=== PATIENT | female | born 1960 | race Caucasian/White ===

== ENCOUNTER → 2016-09-29 | Outpatient (CLI) | payer OTHER, MEDICAID ==
[~2016-09-29] MED LIST: LEXISCAN IV ONE
== END ==
LOC: RAD 08:18
PROVIDERS: ATTEND Internal Medicine Cardiovascular Disease
DX: R07.89 Other chest pain (principal); R06.09 Other forms of dyspnea
CPT/HCPCS: 78452; 93017; A4222; A9502; J2785

== ENCOUNTER → 2016-10-01 | Outpatient (CLI) | payer OTHER, MEDICAID | LOC: RAD 13:27 | PROVIDERS: ATTEND Internal Medicine Cardiovascular Disease | DX: R07.89 Other chest pain (principal); R06.09 Other forms of dyspnea | CPT/HCPCS: 93306 ==

== ENCOUNTER → 2017-01-05 | Outpatient (CLI) | payer OTHER, MEDICAID ==
--- NOTE | 2017-01-05 15:17 | MRI ---
HISTORY: Shoulder pain. Noncontrast MRI exam of the left shoulder. Technique: Multiplanar and multisequence MR examination of the left shoulder is performed at 1.5 Tal[place] la without the use of IV contrast. Findings: ? Rotator cuff: The subscapularis is intact. No medial displacement of the biceps tendon is seen. Th ere is tendinosis of the posterior supraspinatus, distally, at the footplate. Also seen is tendinosi s of the anterior infraspinatus at the footplate without full-thickness rotator cuff tear seen. No f ocal rotator cuff tear or rotator cuff atrophy is seen. The teres minor is intact. Increased T2 sign al change and linear fluid is seen in the subacromial \T\ subdeltoid bursa, compatible with mild sub acromial \T\ subdeltoid bursitis. ? Intra-articular biceps: No injury, tear, or displacement observed. ? Glenoid labrum: Superior labral fraying without displaced labral tear. ? Acromioclavicular joint: There is no evidence for AC joint separation or associated AC joint injur y, however. Mild to moderate AC joint osteoarthritis is seen. ? Glenohumeral joint: No joint effusion, focal joint erosion, or loose body seen. ? Bone marrow: No altered T2 signal seen to suggest an acute fracture, bone marrow contusion, or agg ressive bone marrow lesion. No Hill-Sachs deformity or bony Bankart lesion is seen, either. No other bone marrow signal abnormality is observed. ? Other: No concerning or infiltrative soft tissues masses are seen. IMPRESSION: 1. Moderate tendinosis of the conjoined tendon, distally, at the footprint. 2. No full-thickness rotator cuff tear or rotator cuff atrophy is seen. 3. 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 4. Mild subacromial \T\ subdeltoid bursitis and inflammation. Reported By:
== END ==
LOC: RAD 08:48
PROVIDERS: ATTEND Pain Medicine Interventional Pain Medicine
DX: M25.512 Pain in left shoulder (principal)
CPT/HCPCS: 73221

== ENCOUNTER → 2017-02-05 | Outpatient (CLI) | payer OTHER, MEDICAID ==
[2017-02-05 08:31] LABS: BASOPHILS # (AUTO) 0.1 X10^3/uL (0.0-0.1); BASOPHILS % (AUTO) 0.9 % (0.2-1.0); EOSINOPHILS # (AUTO) 0.1 x10^3/uL (0.0-0.2); HEMOGLOBIN 12.6 g/dL (12.0-16.0); LYMPHOCYTES # (AUTO) 1.8 X10^3/uL (1.3-2.9); LYMPHOCYTES % (AUTO) 30.5 % (21.0-51.0); MEAN CORPUSCULAR HEMOGLOBIN 30.3 pg (27.0-34.0); MEAN CORPUSCULAR HGB CONC 34.1 g/dL (33.0-35.0); MEAN CORPUSCULAR VOLUME 88.8 fL (80.0-100.0); MONOCYTES # (AUTO) 0.5 x10^3/uL (0.3-0.8); MONOCYTES % (AUTO) 7.7 % (0.0-13.0); NEUTROPHILS # (AUTO) 3.5 x10^3/uL (2.2-4.8); NEUTROPHILS % (AUTO) 59.9 % (42.0-75.0); PLATELET COUNT 163 X10^3/uL (150.0-450.0); RED BLOOD COUNT 4.17 X10^6/uL (3.5-5.4); RED CELL DISTRIBUTION WIDTH 13.7 % (11.6-16.5); WHITE BLOOD COUNT 5.9 X10^3/uL (3.6-10.0)
[2017-02-05 08:40] LABS: ALANINE AMINOTRANSFERASE 32 Units/L (12-78); ALBUMIN 3.5 g/dL (3.4-5.0); ALKALINE PHOSPHATASE 81 Units/L (46-116); ASPARTATE AMINO TRANSFERASE 34 Units/L (15-37); BLOOD UREA NITROGEN 12 mg/dL (7-18); CARBON DIOXIDE 25.4 mmol/L (21-32); CHLORIDE 106 mmol/L (98-107); CHOL/HDL RATIO 2.2 (0.0-5.0); CHOLESTEROL 83 mg/dL (0-200); CREATININE 1.21 mg/dL (0.55-1.02); HDL CHOLESTEROL 37 mg/dL (40-60); SODIUM 140 mmol/L (136-145); TOTAL PROTEIN 6.5 g/dL (6.4-8.2); TRIGLYCERIDES 142 mg/dL (0-150); eGFR BLACK RACES 59 (>60); eGFR NON BLACK RACES 49 (>60)
[2017-02-05 09:04] LABS: ERYTHROCYTE SEDIMENTATION RATE 14 MM/HOUR (0-20)
== END ==
LOC: LAB 08:01
PROVIDERS: ATTEND Nurse Practitioner Family
DX: I10 Essential (primary) hypertension (principal); E78.4 Other hyperlipidemia; M15.0 Primary generalized (osteo)arthritis
CPT/HCPCS: 36415; 80053; 80061; 85025; 85652; 86140

== ENCOUNTER → 2017-02-12 | Outpatient (CLI) | payer OTHER, MEDICAID ==
--- NOTE | 2017-02-12 14:02 | MRI ---
MRI cervical spine without contrast Indication: Cervical spondylosis. Neck pain. Comparison: 07/07/2016 Technique: Multiplanar multisequence MR images of the cervical spine were obtained without contrast. Findings: The lower brain and craniocervical junction are unremarkable. The cervical cord demonstrate s normal signal and morphology. The marrow signal and alignment of the cervical spine is normal. The visualized pre and paravertebral soft tissues demonstrate no significant abnormality. C2-3: Minimal left-sided facet arthropathy without significant foraminal or canal narrowing. C3-4: Mild broad-based disk bulge effaces the anterior thecal sac, without compressing the cord or markedly narrowing the canal diameter. No significant neuroforaminal narrowing. Minimal left-sided facet arthropathy. C4-5, C5-6, C6-7, C7-T1: Unremarkable. Images through the lung apices demonstrate a 6 mm opacity of the right lung apex ; this is similar to the previous CT neck from 07/18/2013 and is suggestive for pleural parenchymal scarring. Impression: Small broad-based disc bulge at C3-4 effacing the thecal sac, without significantly compressing the c ord, unchanged. Reported By:
== END | disposition home or self-care (01) | DRG 552 ==
LOC: RAD 09:57
PROVIDERS: ATTEND Nurse Practitioner Family
DX: M47.22 Other spondylosis with radiculopathy, cervical region (principal); M50.21 Other cervical disc displacement, high cervical region
CPT/HCPCS: 72141

== ENCOUNTER → 2017-04-07 | Outpatient (CLI) | payer OTHER, MEDICAID ==
--- NOTE | 2017-04-07 15:07 | MRI ---
MRI left shoulder without contrast Indication: Chronic left shoulder pain Comparison: 01/05/2017 Technique: Multiplanar multi sequence MR images of the left shoulder were obtained without contrast. Findings: No evidence for acute fracture or dislocation. There are mild degenerative changes AC joint. Trace fl uid is present within the subacromial/subdeltoid bursa. There is mild distal conjoined tendinosis. No evidence for large cuff tear or tendon retraction. The glenohumeral articular surfaces are grossly m aintained. No overt labral tear. The intra-articular biceps tendon is intact. No joint effusion. No s ignificant muscle atrophy about the shoulder. Impression: Mild conjoined tendinosis, subacromial/subdeltoid bursitis. Mild AC joint degenerative disease. Reported By:
--- NOTE | 2017-04-08 14:10 | MRI ---
MRI SPINE CERVICAL WITHOUT CONTRAST CLINICAL HISTORY: 56-year-old female with chronic neck pain. COMPARISON: MR cervical spine 02/12/2017. Technique: Multiplanar, multisequence MRI images of the cervical spine were obtained without the adm inistration of intravenous contrast. FINDINGS: Straightening of the cervical lordosis as imaged. Alignment is maintained. The craniocervic al junction is normal. Congenital canal stenosis. Vertebral body and disc space height are maintained . Vertebral marrow and intervertebral disc space signal are normal. Cord signal is normal. The visu alized posterior fossa structures are normal. C2-C3: No central canal or neural foraminal stenosis. C3-C4: Broad-based central disc osteophyte complex that narrows canal to 7.8 mm without cord impingem ent, with mild flattening of the ventral cord without cord signal change and no foraminal stenosis. C4-C5: Central disc osteophyte narrows canal to 7.4 mm with mild flattening of the central and right central ventral cord without cord signal change or impingement. No neural foraminal stenosis. C5-C6: Shallow, broad-based disc osteophyte without central canal or neural foraminal stenosis, cord impingement or contour deformity. No neural foraminal stenosis. C6-C7: No central canal or neural foraminal stenosis. C7-T1: No central canal or neural foraminal stenosis. Paraspinous soft tissues are unremarkable. IMPRESSION: 1. Mild multilevel disc degeneration and spondyloarthropathy ventral contour deformity of the cord fr om C3-C5 as described without cord signal change. 2. See level by level descriptions above.. Reported By:
== END ==
LOC: RAD 08:24
PROVIDERS: ATTEND Nurse Practitioner Family
DX: M47.22 Other spondylosis with radiculopathy, cervical region (principal); M19.012 Primary osteoarthritis, left shoulder
CPT/HCPCS: 72141; 73221

== ENCOUNTER → 2017-05-04 | Outpatient (CLI) | payer OTHER, MEDICAID ==
[2017-05-04 08:28] LABS: BASOPHILS # (AUTO) 0.1 X10^3/uL (0.0-0.1); BASOPHILS % (AUTO) 0.7 % (0.2-1.0); EOSINOPHILS # (AUTO) 0.1 x10^3/uL (0.0-0.2); EOSINOPHILS % (AUTO) 0.5 % (0.9-2.9); HEMATOCRIT 42.9 % (36.0-47.0); HEMOGLOBIN 14.8 g/dL (12.0-16.0); LYMPHOCYTES # (AUTO) 3.8 X10^3/uL (1.3-2.9); LYMPHOCYTES % (AUTO) 34.5 % (21.0-51.0); MEAN CORPUSCULAR HEMOGLOBIN 30.5 pg (27.0-34.0); MEAN CORPUSCULAR HGB CONC 34.4 g/dL (33.0-35.0); MEAN CORPUSCULAR VOLUME 88.6 fL (80.0-100.0); MONOCYTES # (AUTO) 1.2 x10^3/uL (0.3-0.8); MONOCYTES % (AUTO) 10.7 % (0.0-13.0); NEUTROPHILS # (AUTO) 5.8 x10^3/uL (2.2-4.8); NEUTROPHILS % (AUTO) 53.6 % (42.0-75.0); PLATELET COUNT 337 X10^3/uL (150.0-450.0); RED BLOOD COUNT 4.84 X10^6/uL (3.5-5.4); RED CELL DISTRIBUTION WIDTH 14.8 % (11.6-16.5); WHITE BLOOD COUNT 10.9 X10^3/uL (3.6-10.0)
[2017-05-04 08:41] LABS: ALANINE AMINOTRANSFERASE 19 Units/L (12-78); ALBUMIN 3.8 g/dL (3.4-5.0); ALKALINE PHOSPHATASE 98 Units/L (46-116); ASPARTATE AMINO TRANSFERASE 17 Units/L (15-37); BLOOD UREA NITROGEN 8 mg/dL (7-18); C-REACTIVE PROTEIN < 0.50 mg/L (0-3.0); CALCIUM 9.4 mg/dL (8.5-10.1); CARBON DIOXIDE 25.1 mmol/L (21-32); CHLORIDE 105 mmol/L (98-107); CREATININE 1.12 mg/dL (0.55-1.02); SODIUM 142 mmol/L (136-145); TOTAL PROTEIN 7.4 g/dL (6.4-8.2); eGFR BLACK RACES > 60 (>60); eGFR NON BLACK RACES 54 (>60)
[2017-05-04 09:08] LABS: ERYTHROCYTE SEDIMENTATION RATE 8 MM/HOUR (0-20)
== END ==
LOC: LAB 07:54
PROVIDERS: ATTEND Nurse Practitioner Family
DX: I10 Essential (primary) hypertension (principal); M67.912 Unspecified disorder of synovium and tendon, left shoulder
CPT/HCPCS: 36415; 80053; 85025; 85652; 86140

== ENCOUNTER → 2017-05-05 | Outpatient (CLI) | payer OTHER, MEDICAID ==
--- NOTE | 2017-05-08 14:51 | MG ---
HISTORY: SCREENING Comparison: Multiple priors dating back to July 07, 2013 FINDINGS: Bilateral CC of the right and left breast were obtained. MLO right and mL left breast imaging was per formed due to left shoulder injury and inability to tolerate left MLO views. Scattered fibroglandular tissue is seen to be present without significant interval change. No suspicious architectural disto rtion, mass or clustered microcalcifications can be observed to suggest malignancy. No skin thickeni ng or nipple retraction is appreciated. No pathological lymphadenopathy can be identified, but the left axilla is not imaged. Benign-appearing calcifications are noted within the right and left breast . IMPRESSION: NO RADIOGRAPHIC EVIDENCE OF MALIGNANCY. ACR CATEGORY 2 - benign findings. FOLLOW-UP EXAM 1 YEAR. Additionally, correlation with physical exam of the left axilla is recommended given limited imaging as above. Diagnostic CAD was utilized and reviewed. * 0 (ZERO) - ASSESSMENT INCOMPLETE; ADDITIONAL IMAGING IS NEEDED. * / (ONE) - NEGATIVE. * 2/II (TWO) - BENIGN FINDINGS. * 3/III (THREE) - PROBABLY BENIGN FINDING; SHORT INTERVAL FOLLOW-UP SUGGESTED. * 4/IV (FOUR) - SUSPICIOUS ABNORMALITY; BIOPSY SHOULD BE CONSIDERED. * 5/V - HIGHLY SUSPICIOUS OF MALIGNANCY; BIOPSY SHOULD BE PERFORMED. A NEGATIVE X-RAY REPORT SHOULD NOT DELAY BIOPSY IF A DOMINANT OR CLINICALLY SUSPICIOUS MASS IS PRESENT; 4 TO 8 PERCENT OF CANCERS ARE NOT IDENTIFIED BY X-RAY. A NEGA TIVE REPORT MAY REINFORCE THE CLINICAL IMPRESSION. ADENOSIS AND DENSE BREASTS MAY OBSCURE AN UNDERLY ING NEOPLASM. Reported By:
== END ==
LOC: RAD 10:35
PROVIDERS: ATTEND Nurse Practitioner Family
DX: Z12.31 Encounter for screening mammogram for malignant neoplasm of breast (principal)
CPT/HCPCS: 77067

== ENCOUNTER → 2017-06-08 | Outpatient (CLI) | payer OTHER, MEDICAID ==
--- NOTE | 2017-06-08 10:20 | CT ---
HISTORY: Branchial plexus lesions, disorder at C5-C6, attention to where cervical rib meets 1st verte bra Study: CT cervical spine without contrast Comparison: MRI 04/13/2017 Technique: Multiple axial images of the cervical spine were obtained from the skull base to the thora cic inlet without administration of IV contrast. Sagittal and coronal reformats were performed and r eviewed. Dose reduction techniques including Automated Exposure Control (AEC) and adjustment of mA an d kV were utilized. Findings: Normal cervical alignment. Vertebral body heights are preserved. The disc spaces appear normal. The p osterior elements are intact. No evidence of acute fracture or dislocation. No cervical ribs are see n. No spinal or foraminal stenosis identified. The visualized prevertebral and paraspinal soft tissues appear normal. The visualized lung apices are clear. No supraclavicular mass is seen. IMPRESSION: 1. Negative CT of the cervical spine. Reported By:
--- NOTE | 2017-06-09 10:40 | MRI ---
HISTORY: Lesion of left ulnar nerve. NON-CONTRAST MRI EXAM OF THE LEFT ELBOW JOINT Technique: Multi-sequence and multiplanar T2, T1, and PD MRI images of the left elbow joint performed at 1.5 richie without the benefit of IV contrast on this elbow joint exam. Findings: The examination demonstrates an intact biceps and brachialis tendon without evidence for ab normal signal. The triceps tendon is also intact without evidence for injury or abnormal signal. Ther e is no evidence for olecranon bursitis. The UCL complex is intact as well. No UCL disruption is seen . There is no evidence for a full-thickness lateral myotendinous complex tear or retraction observed. The lateral/radial collateral ligament complex is intact without tear or additional abnormality. The medial myotendinous complex that originates from the humeral epicondyle is within normal limits with out evidence for inflammation or tear. No other abnormal intramuscular signal is seen about the elbow joint. There is normal bone marrow signal seen also without evidence for an acute fracture, subluxat ion, or dislocation. There is no loose body or significant joint effusion seen. There is no focal ost eochondral defect seen. No aggressive bone marrow lesion or soft tissue mass is appreciated. No other musculoskeletal abnormalities are seen. No susceptibility artifact / (metallic) foreign body is seen . No aggressive soft tissue mass within or about the elbow joint is seen. However, there is increased signal seen in the ulnar nerve near the cubital tunnel without evidence for a lesion in the cubital tunnel. However, this with any clinical context to evaluate for neural entrapment syndrome/ulnar neur itis in this setting. No distinct ulnar nerve lesion or peripheral nerve sheath tumor is suggested on this exam, however. No other aggressive musculoskeletal or soft tissue/bony lesion is seen, either. No injury seen. IMPRESSION: Increased T2 signal seen in the ulnar nerve near the cubital tunnel without evidence for a solid lesion in the cubital tunnel. However, this finding needs clinical context to evaluate for ne ural entrapment syndrome/ulnar neuritis in this setting. No distinct ulnar nerve lesion or peripheral nerve sheath tumor is suggested on this exam, however. No other aggressive musculoskeletal or soft t issue/bony lesion is seen, either. No elbow injuries seen. Reported By:
== END ==
LOC: RAD 08:23
PROVIDERS: ATTEND Neurological Surgery
DX: R29.898 Other symptoms and signs involving the musculoskeletal system (principal); G56.22 Lesion of ulnar nerve, left upper limb; Q76.5 Cervical rib; M50.122 Cervical disc disorder at C5-C6 level with radiculopathy; M50.123 Cervical disc disorder at C6-C7 level with radiculopathy
CPT/HCPCS: 72125; 73221

== ENCOUNTER 2017-06-22 14:19 | Emergency (ER) | payer OTHER, MEDICAID ==
[2017-06-22 14:28] VITALS: BMI 20.5
[2017-06-22] MEDS ORDERED: NS 1000 ML 1,000 ML IV ONE (14:51)
--- NOTE | 2017-06-22 14:53 | DR.GENAD ---
HPI - PCP Primary Care Physician: CAROLYN HOLLY - HPI Comment HPI Comment: SEVERAL BM WITH N/V/D SINCE YESTERDAY, GETTINH WORSE. NOT HOLDING DOWN FLUID OR FOOD. - Complaint/Symptoms Chief Complaint Doctors Comments: N/V/D TIMES ONE DAY. WEAK, DIZZY. Chief Complaint:: PT STATED SHE FELT BAD YESTERDAY WITH DIARRHEA AND VOMITING. SHE STATED SHE IS WEAK,AND THINK I HAVE THE FLU - Nurses notes reviewed Nurses Notes Review: Yes - Source History Provided: Patient - Mode of Arrival Mode of Arrival: Ambulatory - Timing Onset of Chief Complaint: 06/21/17 Came on: Suddenly - Duration Duration: Constant Duration: Days - Severity Severity: Moderate PMH - PMH Past Medical History: Yes Past Medical History: Depression, Dyslipidemia, Hypertension Past Surgical History: Yes Surgical History: REGISTERED PRIVATE DUTY NURSE Surgery, Hysterectomy, Ortho Surgery - Family History History of Family Medical Conditions: No - Social History Does patient currently use any type of tobacco product: Yes Have you used tobacco products in the last 12 months: Yes Type of Tobacco Use: Cigarettes How many years tobacco product used: 4 Does any household member use tobacco: No Alcohol Use: None Do you use any recreational Drugs:: No Lives With: Family Lives Where: Home - infectious screening In the last 2 months have you had wt loss of >10#?: NO Have you had fever, night sweats or hemotysis?: No Have you traveled outside the country in the last 6 months?: No Isolation: Standard ROS - Review of Systems Constitutional: Weakness, Fatigue. negative: Chills, Fever Eyes: negative: See HPI, Discharge ENTM: negative: Ear Pain, Nose Discharge, Nose Congestion, Throat Pain Respiratoy: Non-Productive Cough Cardiovascular: No Symptoms Reported Gastrointestinal/Abdominal: Abdominal Pain, Nausea, Vomiting Genitourinary: negative: Dysuria, Frequency, Hematuria Neurological: Headache, Weakness, Dizziness Musculoskeletal: Back Pain, Muscle Pain Integumentary: Dryness Hematologic/Lymphatic: No Symptoms Reported Endocrine: No Symptoms Reported All Other Systems: Reviewed and Negative PE - Vital Signs Vitals: Temperature 98.4 F Pulse Rate [Left Brachial] 92 Pulse Rate 101 Respiratory Rate 20 Blood Pressure [Left Arm] 120/82 Blood Pressure 133/93 O2 Sat by Pulse Oximetry 98 - General Limitations: No Limitations General Appearance: Alert - Head Head Exam: Normal Inspection - Eyes Eye exam: Normal Appearance - ENT ENT Exam: Normal External Ear Exam External Ear Exam: Normal External Inspection TM/Canal Exam: Bilateral Normal Nose Exam: Normal Nose Exam Mouth Exam: Normal Inspection Throat Exam: Normal Inspection. negative: Tonsillar Erythema, Tonsillomegaly, Tonsillar Exudate - Neck Neck Exam: Trachea Midline - Chest Chest Inspection: Symmetric Chest Wall Rise - Respiratory Respiratory Exam: Normal Lung Sounds Bilat Respiratory Exam: Bilateral Rhonchi, Lower Rhonchi - Cardiovascular Cardiovascular Exam: Regular Rate, Normal Rhythm, Tachycardia - Abdominal Exam Abdominal Exam: Normal Bowel Sounds, Soft, Tenderness Abdominal Tenderness: Diffuse, Moderate - Extremities Extremities Exam: Normal Inspection, Tenderness - Back Back Exam: Normal Inspection - Neurologic Neurological Exam: Oriented X3 - Psychiatric Psychiatric Exam: Anxious - Skin Skin Exam: Dry MDM - Differential Diagnosis Differential Diagnosis: ACUTE GASTROENTERITIS, FLU. BOWEL ONSTRUCTION Course - Treatment Treatment: SEE ORDERS. IV NAUSEA MED AND IV NS PLUS POTASSIUM IN ED. - Reevaluation 1st: Improved - Education/Counseling Education/Counseling: Patient, Education Educated On: Diagnosis, Needs for Follow Up ROR - Labs Reviewed Laboratory Results Reviewed?: Yes Result Diagrams: 06/22/17 15:00 06/22/17 15:00 Laboratory: WBC 10.6 X10^3/uL (3.6-10.0) H 06/22/17 15:00 RBC 4.99 X10^6/uL (3.5-5.4) 06/22/17 15:00 Hgb 15.3 g/dL (12.0-16.0) 06/22/17 15:00 Hct 44.3 % (36.0-47.0) 06/22/17 15:00 MCV 88.9 fL (80.0-100.0) 06/22/17 15:00 MCH 30.7 pg (27.0-34.0) 06/22/17 15:00 MCHC 34.6 g/dL (33.0-35.0) 06/22/17 15:00 RDW 14.9 % (11.6-16.5) 06/22/17 15:00 Plt Count 235 X10^3/uL (150.0-450.0) 06/22/17 15:00 MPV 7.6 fL (7.4-11.0) 06/22/17 15:00 Neut % 68.2 % (42.0-75.0) 06/22/17 15:00 Lymph % 20.7 % (21.0-51.0) L 06/22/17 15:00 [place] % 10.3 % (0.0-13.0) 06/22/17 15:00 Eos % 0.3 % (0.9-2.9) L 06/22/17 15:00 Baso % 0.5 % (0.2-1.0) 06/22/17 15:00 Neut # 7.2 x10^3/uL (2.2-4.8) H 06/22/17 15:00 Lymph # 2.2 X10^3/uL (1.3-2.9) 06/22/17 15:00 [place] # 1.1 x10^3/uL (0.3-0.8) H 06/22/17 15:00 Eos # 0.0 x10^3/uL (0.0-0.2) 06/22/17 15:00 Baso # 0.1 X10^3/uL (0.0-0.1) 06/22/17 15:00 Absolute Nucleated RBC 0.0 /100WBC 06/22/17 15:00 Sodium 129 mmol/L (136-145) L 06/22/17 15:00 Corrected Sodium TNP 06/22/17 15:00 Potassium 3.0 mmol/L (3.5-5.1) L* 06/22/17 15:00 Chloride 97 mmol/L (98-107) L 06/22/17 15:00 Carbon Dioxide 21.2 mmol/L (21-32) 06/22/17 15:00 BUN 19 mg/dL (7-18) H 06/22/17 15:00 Creatinine 1.37 mg/dL (0.55-1.02) H 06/22/17 15:00 Est GFR (MDRD) Af Amer 51 (>60) L 06/22/17 15:00 Est GFR (MDRD) Non-Af 43 (>60) L 06/22/17 15:00 Glucose 103 mg/dL (65-99) H 06/22/17 15:00 Calcium 9.3 mg/dL (8.5-10.1) 06/22/17 15:00 Corrected Calcium TNP 02/05/18 15:00 Total Bilirubin 0.40 mg/dL (0.2-1.0) 06/22/17 15:00 AST 47 Units/L (15-37) H 06/22/17 15:00 ALT 28 Units/L (12-78) 06/22/17 15:00 Alkaline Phosphatase 107 Units/L (46-116) 06/22/17 15:00 Total Protein 7.4 g/dL (6.4-8.2) 06/22/17 15:00 Albumin 3.5 g/dL (3.4-5.0) 06/22/17 15:00 Globulin 3.9 g/dL (2.5-4.5) 06/22/17 15:00 Albumin/Globulin Ratio 0.9 Ratio (1.1-2.1) L 06/22/17 15:00 Influenza Type A (PCR) Negative (NEGATIVE) 06/22/17 14:50 Influenza Type B (PCR) Negative (NEGATIVE) 06/22/17 14:50 S. pyogenes (TEM-PCR) Not detected (NOT DETECT) 06/22/17 14:55 - XRAY XRAY Interpreted by: Radiologist XRAY Findings: REPORT DISCUSS WITH PATIENT. - Diagnosis Discharge Problem: Gastroenteritis, Dehydration, Hypokalemia - Discharge Plan Disposition: 01 HOME, SELF-CARE Condition: Stable Prescriptions: Diphenoxylate/Atropine [Lomotil] 1 tab PO TID PRN #15 tab PRN Reason: Ondansetron [Zofran ODT 8 mg] 8 mg PO Q8H PRN #12 tab PRN Reason: Nausea/Vomiting - Follow ups/Referrals Follow ups/Referrals: DAKSHA HOLLY [Primary Care Provider] - 3 days - Instructions Instructions: Viral Gastroenteritis, Adult, [id number], Hypokalemia, Dehydration, Adult, [id number] Additional Instructions: RETURN TO ED IF WORSE.
[2017-06-22] MEDS ORDERED: NS 1000 ML 1,000 ML ONE (15:07)
[2017-06-22 15:12] LABS: BASOPHILS # (AUTO) 0.1 X10^3/uL (0.0-0.1); BASOPHILS % (AUTO) 0.5 % (0.2-1.0); EOSINOPHILS % (AUTO) 0.3 % (0.9-2.9); HEMATOCRIT 44.3 % (36.0-47.0); HEMOGLOBIN 15.3 g/dL (12.0-16.0); LYMPHOCYTES # (AUTO) 2.2 X10^3/uL (1.3-2.9); LYMPHOCYTES % (AUTO) 20.7 % (21.0-51.0); MEAN CORPUSCULAR HEMOGLOBIN 30.7 pg (27.0-34.0); MEAN CORPUSCULAR HGB CONC 34.6 g/dL (33.0-35.0); MEAN CORPUSCULAR VOLUME 88.9 fL (80.0-100.0); MEAN PLATELET VOLUME 7.6 fL (7.4-11.0); MONOCYTES # (AUTO) 1.1 x10^3/uL (0.3-0.8); MONOCYTES % (AUTO) 10.3 % (0.0-13.0); NEUTROPHILS # (AUTO) 7.2 x10^3/uL (2.2-4.8); NEUTROPHILS % (AUTO) 68.2 % (42.0-75.0); PLATELET COUNT 235 X10^3/uL (150.0-450.0); RED BLOOD COUNT 4.99 X10^6/uL (3.5-5.4); RED CELL DISTRIBUTION WIDTH 14.9 % (11.6-16.5); WHITE BLOOD COUNT 10.6 X10^3/uL (3.6-10.0)
[2017-06-22 15:29] LABS: ALANINE AMINOTRANSFERASE 28 Units/L (12-78); ALBUMIN 3.5 g/dL (3.4-5.0); ALKALINE PHOSPHATASE 107 Units/L (46-116); ASPARTATE AMINO TRANSFERASE 47 Units/L (15-37); BLOOD UREA NITROGEN 19 mg/dL (7-18); CALCIUM 9.3 mg/dL (8.5-10.1); CARBON DIOXIDE 21.2 mmol/L (21-32); CHLORIDE 97 mmol/L (98-107); CREATININE 1.37 mg/dL (0.55-1.02); SODIUM 129 mmol/L (136-145); TOTAL PROTEIN 7.4 g/dL (6.4-8.2); eGFR BLACK RACES 51 (>60); eGFR NON BLACK RACES 43 (>60)
[2017-06-22] MEDS ORDERED: ZOFRAN INJ 4 MG VIAL IVP ONE (15:45)
[2017-06-22] MEDS ORDERED: NS + KCL 20 MEQ/L 1,000 ML IV ONE (15:47)
[2017-06-22] MEDS ORDERED: ZOFRAN INJ 4 MG VIAL ONE (15:47)
[2017-06-22] MEDS ORDERED: NS + KCL 20 MEQ/L 500 ML IV SCH (16:00)
--- NOTE | 2017-06-22 16:22 | RAD ---
HISTORY: Abdominal pain. Study: Acute abdominal series Comparison: None. Findings: The trachea is midline. The cardiac silhouette is unremarkable. The lungs are clear without focal i nfiltrate or effusion. The bony thorax is unremarkable. Flat plate and upright evaluation of the abdomen demonstrates a nonspecific/nonobstructive bowel gas pattern with air and stool to the level of the rectum. No obvious free air. No pathological soft tis yovana mass or calcification can be observed. The bony structures are grossly intact. IMPRESSION: 1. No acute cardiopulmonary disease. 2. No evidence for acute abdominal pathology identified. Reported By:
[2017-06-22] MEDS ORDERED: LOMOTIL PO ONE (18:17)
[2017-06-22] MEDS ORDERED: LOMOTIL ONE (18:29)
[2017-06-22 19:57] VITALS: BP 120/82
== END 2017-06-22 19:56 | disposition home or self-care (01) ==
LOC: ER 14:29
DX: K52.89 Other specified noninfective gastroenteritis and colitis (principal); E86.0 Dehydration; E87.6 Hypokalemia
CPT/HCPCS: 36415; 74022; 80053; 85025; 87070; 87502; 87651; 87880; 96365; 96367; 96374; 96375; 99283; A4222; J2405

== ENCOUNTER → 2017-06-26 | Outpatient (CLI) | payer OTHER, MEDICAID ==
[~2017-06-26] MED LIST changes: -LEXISCAN IV ONE; +NS 250 ML IV 250 ML IV ONE; +POTASSIUM CHL 60 MEQ/NS 0.45% 500 ML 60 MEQ/500 ML BAG IV NR; +POTASSIUM CHLORIDE INJ 40 MEQ VIAL IV ONE
[2017-06-26 10:24] LABS: ALANINE AMINOTRANSFERASE 33 Units/L (12-78); ALBUMIN 3.5 g/dL (3.4-5.0); ALKALINE PHOSPHATASE 127 Units/L (46-116); ASPARTATE AMINO TRANSFERASE 21 Units/L (15-37); BLOOD UREA NITROGEN 7 mg/dL (7-18); CALCIUM 8.9 mg/dL (8.5-10.1); CARBON DIOXIDE 30.2 mmol/L (21-32); CHLORIDE 104 mmol/L (98-107); CREATININE 1.04 mg/dL (0.55-1.02); SODIUM 143 mmol/L (136-145); TOTAL PROTEIN 6.9 g/dL (6.4-8.2); eGFR BLACK RACES > 60 (>60); eGFR NON BLACK RACES 58 (>60)
[2017-06-26 10:33] LABS: BASOPHILS # (AUTO) 0.1 X10^3/uL (0.0-0.1); BASOPHILS % (AUTO) 0.5 % (0.2-1.0); EOSINOPHILS # (AUTO) 0.1 x10^3/uL (0.0-0.2); EOSINOPHILS % (AUTO) 0.4 % (0.9-2.9); HEMOGLOBIN 13.7 g/dL (12.0-16.0); LYMPHOCYTES # (AUTO) 2.5 X10^3/uL (1.3-2.9); LYMPHOCYTES % (AUTO) 18.3 % (21.0-51.0); MEAN CORPUSCULAR HEMOGLOBIN 30.5 pg (27.0-34.0); MEAN CORPUSCULAR HGB CONC 34.3 g/dL (33.0-35.0); MEAN PLATELET VOLUME 8.5 fL (7.4-11.0); MONOCYTES # (AUTO) 0.9 x10^3/uL (0.3-0.8); MONOCYTES % (AUTO) 6.6 % (0.0-13.0); NEUTROPHILS # (AUTO) 10.1 x10^3/uL (2.2-4.8); NEUTROPHILS % (AUTO) 74.2 % (42.0-75.0); PLATELET COUNT 244 X10^3/uL (150.0-450.0); RED BLOOD COUNT 4.49 X10^6/uL (3.5-5.4); RED CELL DISTRIBUTION WIDTH 14.5 % (11.6-16.5); WHITE BLOOD COUNT 13.7 X10^3/uL (3.6-10.0)
[2017-06-26 15:17] VITALS: BMI 19.7
[2017-06-27 02:27] VITALS: BP 120/81
== END ==
LOC: LAB 09:48
PROVIDERS: ATTEND Nurse Practitioner Family
DX: K52.89 Other specified noninfective gastroenteritis and colitis (principal); E87.6 Hypokalemia
CPT/HCPCS: 36415; 80053; 84132; 85025; 96365; 96374; A4222

== ENCOUNTER → 2017-07-14 | Outpatient (CLI) | payer OTHER, MEDICAID ==
[2017-06-27 02:27] VITALS: BP 120/81
[2017-07-14 08:38] LABS: CHOL/HDL RATIO 2.6 (0.0-5.0)
== END ==
LOC: LAB 07:58
PROVIDERS: ATTEND Nurse Practitioner Family
DX: E78.4 Other hyperlipidemia (principal)
CPT/HCPCS: 36415; 80061

== ENCOUNTER → 2017-08-03 | Outpatient (CLI) | payer OTHER, MEDICAID ==
[2017-06-27 02:27] VITALS: BP 120/81
[2017-08-05 06:18] LABS: ANTI-NUCLEAR ANTIBODY TEST None Detected (None Detected)
== END ==
LOC: LAB 08:02
PROVIDERS: ATTEND Neurological Surgery
DX: M35.9 Systemic involvement of connective tissue, unspecified (principal)
CPT/HCPCS: 36415; 85652; 86140; 86308

== ENCOUNTER → 2017-08-04 | Outpatient (CLI) | payer OTHER, MEDICAID ==
[2017-06-27 02:27] VITALS: BP 120/81
[2017-08-04 11:03] LABS: CREATININE 1.05 mg/dL (0.55-1.02)
--- NOTE | 2017-08-04 12:44 | MRI ---
Exam: MRI of the brain without and with contrast History: 57-year-old female with headaches and dizziness Comparison: None. Findings: Multi sequence multi planar imaging was performed through the abdomen both before, and following the administration of intravenous contrast. 11 cc of Omniscan was used for the study Posterior fossa and supratentorial region are unremarkable with no evidence of intracranial hemorrhag e, extracerebral fluid collections, or intracranial mass. Ventricles are symmetric in size and positi on with no mass effect seen. Following contrast administration, no abnormal areas of enhancement are seen. Visualized aspect of the paranasal sinuses and mastoid air cells are clear. IMPRESSION: Unremarkable MRI of the brain. No acute intracranial abnormality is identified. Reported By:
== END ==
LOC: RAD 10:33
PROVIDERS: ATTEND Neurological Surgery
DX: R42 Dizziness and giddiness (principal)
CPT/HCPCS: 36415; 70553; 82565; 84520

== ENCOUNTER → 2017-09-04 | Outpatient (CLI) | payer OTHER, MEDICAID ==
[2017-06-27 02:27] VITALS: BP 120/81
--- NOTE | 2017-09-04 10:18 | RAD ---
Indication: Back pain Exam: Lumbar spine series Technique: AP and lateral views Findings: The lumbar vertebra are well aligned. There is [id number] disc space narrowing throug hout with minimal osteophytes along the upper and mid lumbar region. The vertebral body height is wel l maintained throughout. There are sclerotic changes of facets inferiorly with no pars defects. The p edicles are intact. Impression: Moderate multilevel degenerative disc disease and moderate osteoarthritic changes of face ts inferiorly with no acute abnormality seen. Reported By:
--- NOTE | 2017-09-04 10:26 | RAD ---
HISTORY: Back pain Study: Three views of the thoracic spine Comparison: None Findings: Images demonstrate 12 rib-bearing thoracic vertebral bodies. There is slight dextrocurvature of the t horacic spine. The thoracic vertebral body heights are relatively maintained. No evidence of signific ant subluxation is identified. Degenerate facet changes are seen throughout the thoracic spine. Multi level intervertebral disc space narrowing and mild multilevel osteophytosis are also noted. Atheroscl erotic changes are seen within the visualized aorta. IMPRESSION: 1. Multilevel degenerative changes as noted above. Reported By:
== END | disposition home or self-care (01) | DRG 552 ==
LOC: RAD 09:50
PROVIDERS: ATTEND Nurse Practitioner Family
DX: M54.89 Other dorsalgia (principal); M51.36 Other intervertebral disc degeneration, lumbar region
CPT/HCPCS: 72072; 72100

== ENCOUNTER → 2017-10-07 | Outpatient (CLI) | payer OTHER, MEDICAID ==
[2017-06-27 02:27] VITALS: BP 120/81
[2017-10-07 09:52] LABS: HEMOGLOBIN A1C 5.5 %
--- NOTE | 2017-10-07 10:36 | MRI ---
MRI lumbar spine without contrast Indication: Lower back pain Technique: Multisequence, multiplanar MR images of the lumbar spine were obtained without IV contrast . Comparison: Radiograph 09/04/2017 Findings: Vertebral body heights, alignment and marrow signal are normal. No acute fracture, subluxat ion or suspicious osseous lesion is identified. The conus terminates normally at T12-L1. The cauda eq uina is unremarkable. Moderate atrophy of the right kidney and left-sided renal cyst noted. The remai jeyson visualized paraspinal soft tissues are grossly unremarkable. T12-L1: Mild disc desiccation/narrowing. Otherwise, unremarkable. L1-L2: Unremarkable L2-L3: Mild facet arthropathy and ligament thickening without significant stenosis. L3-L4: Mild paracentral disc bulge, facet arthropathy and ligamentum thickening without significant c anal or foraminal stenosis. L4-L5: Mild left paracentral disc bulge, facet arthropathy and ligamentum thickening without signific ant canal or foraminal stenosis. L5-S1: Mild broad-based disc bulge and facet arthropathy results in mild bilateral neural foraminal n arrowing, greater on the right. There is no significant canal stenosis. Impression: Mild multilevel discogenic degenerative changes and facet arthropathy of the lumbar spine, most signi ficant at L5-S1 as detailed above. Reported By:
[2017-10-10 10:22] LABS: T4 (THYROXINE) 7.6 ug/dL (4.7-13.3); TSH (3RD GENERATION) 1.534 uIU/mL (0.358-3.74)
== END ==
LOC: RAD 08:28
PROVIDERS: ATTEND Psychiatry & Neurology Neurology
DX: M47.816 Spondylosis without myelopathy or radiculopathy, lumbar region (principal); R20.2 Paresthesia of skin; Z79.899 Other long term (current) drug therapy
CPT/HCPCS: 36415; 72148; 82607; 82746; 83036; 84436; 84439; 84443; 84481

== ENCOUNTER → 2017-10-09 | Outpatient (CLI) | payer OTHER, MEDICAID ==
[2017-06-27 02:27] VITALS: BP 120/81
--- NOTE | 2017-10-09 11:05 | CT ---
HISTORY: Cyst of kidney Study: CT abdomen and pelvis without contrast Comparison: None Technique: Multiple axial images of the abdomen and pelvis were obtained from the lung bases to the pubic symphy sis without the administration of IV contrast. Dose reduction techniques including automated exposur e control (AEC) and adjustment of mA and kV were utilized. Findings: Minimal atelectasis and/or scarring are seen within visualized lungs. The liver, spleen, pancreas, an d adrenals are grossly unremarkable in appearance. The right kidney is atrophic. Bilateral nonobstruc ting renal calculi are noted. An approximate 1.1 cm cyst is noted within the left kidney. Additional foci of decreased attenuation within both kidneys are too small to accurately characterize. Surgical clips are noted within the gallbladder fossa. A small hiatal hernia is demonstrated. Evaluation of th e stomach, small bowel, colon is limited without oral contrast. There is questionable mild wall thick ening of the urinary bladder which may be further evaluated with ultrasound as clinically indicated. Degenerative changes are seen within the visualized spine. IMPRESSION: Right renal atrophy. Bilateral nonobstructing renal calculi. Left renal cyst. Other findings as noted above. Reported By:
== END | disposition home or self-care (01) | DRG 552 ==
LOC: RAD 10:03
PROVIDERS: ATTEND Nurse Practitioner Family
DX: M47.816 Spondylosis without myelopathy or radiculopathy, lumbar region (principal); R20.2 Paresthesia of skin; N28.1 Cyst of kidney, acquired; N20.0 Calculus of kidney
CPT/HCPCS: 74176